=== PATIENT | female | born 1950 | race Caucasian/White ===

== ENCOUNTER 2024-01-23 06:07 | Day surgery (SDC) | payer MEDICARE, BC, SELFPAY ==
[2024-01-23] VITALS (20 sets, daily range): BP systolic 92–141; BP diastolic 44–96; PULSE 58–113; RESP 12–18; TEMP 35.9–36.9; O2SAT 93–100; BMI 34.4
[2024-01-23] MEDS: LACTATED RINGERS 1000 ML 1,000 ML 100 ML IV (06:51)
[2024-01-23] MEDS: SODIUM CHLORIDE 0.9 % (FLUSH) 10 ML SYRINGE IVF (06:51)
--- NOTE | 2024-01-23 07:08 | P.ORPRC_ITS ---
Procedure Note Date of procedure: 01/23/24 Procedure: PREOPERATIVE DIAGNOSIS: 1. Right knee osteoarthritis POSTOPERATIVE DIAGNOSES: 1. Right knee osteoarthritis PROCEDURE: 1. Right total knee arthroplasty SURGEON: Jeff Pierre MD DIRECTOR OF INDUSTRIAL RELATIONS: Tram Cueto P.A.-C.. An management assistant was critical for this case to aide in patient positioning, suture manipulation, arm positioning, instrument positioning, and closure. ANESTHESIA: Spinal IMPLANTS: DePuy Attune femoral posterior stabilized component size 5, DePuy Attune tibial base rotating platform size 5, DePuy Attune tibial insert rotating platform posterior stabilized polyethylene size 6 mm, and an Attune patella me dialized dome size 38 mm. EBL: 75 ml COMPLICATIONS: None evident INDICATIONS: Swathi is a 73-year-old female who has chronic knee pain secondary to osteoarthritis. Symptoms have worsened despite non operative treatment. Patient is now interested in proceeding with total knee arthroplasty for improved function, decreased pain and better quality of life. Prior to the procedure, risks and benefits of the operative and non operative treatment were discussed with the patient. After discussion of risks, benefits, and alternatives of surgery, informed consent was obtained and the operative site was marked. FINDINGS: Severe tricompartmental degenerative changes with eburnated bone in the medial compartment. PROCEDURE: Patient was seen preoperatively and operative site was marked. Ab ductor canal a genicular blocks were performed by anesthesia staff. Patient was then brought to the operating room, where spine anesthesia was administered by the anesthesia staff. Patient was then placed into the supine position on the OR table and all bony prominences were well padded. Preoperative prophylactic antibiotics were administered intravenously. A tourniquet was placed on the thigh of the operative leg. The right lower extremity was prepped and draped in usual sterile fashion. A surgical time-out was performed confirming patient identity, surgical procedure, and surgical site. Operative extremity was elevated and exsanguinated with an Esmarch and tourniquet was inflated to 250 mmHg. The tourniquet remained inflated for 6 minutes before it was deflated. An anterior longitudinal incision was made and carried down through the subcutaneous tissues. The quadriceps tendon, medial patellar retinaculum, and patellar tendon were visualized. A medial quadriceps splitting parapatellar arthrotomy was performed. The proximal medial tibia was subperiosteal exposed distal to the joint line. The retropatellar fat pad was excised. The knee was flexed and patella everted. A curved osteotome was used to enter the semimembranous bursa medially at the level of the joint line. Medial and lateral tibial plateau osteophytes were removed with a rongeur. The medial meniscus was excised at the meniscal synovial junction. The anterior cruciate ligament was excised. A Z-retractor was placed medially and a right angle Hohmann retractor was placed anterior lateral to the lateral meniscus. A partial lateral meniscectomy was performed. The intramedullary drill was utilized to open the intramedullary canal. ?Intramedullary alignment guide was inserted. The distal femoral cutting block, set at 5 degrees of valgus with a distal femoral resection of 10 mm, was secured with pins, and the distal femoral osteotomy was performed. ?Using the posterior condylar referencing guide, femur was sized to a size 5, and pins were drilled for 3 degrees of external rotation, which corresponded with Whitesides line and the epicondylar axis. ?A 4-in-1 cutting jig was inserted at 3 degrees of e xternal rotation. ?The anterior and posterior condylar cuts were performed followed by anterior and posterior chamfer cuts. The box cutting guide was then secured to the distal femur with pins and the box osteotomy was performed. ? ? We then turned our attention back to the tibia. ?Ranasall maneuver was performed and remainder of the lateral meniscus, medial meniscus, and PCL were excised. ?A retractor was placed along the posterior tibia. ?Extramedullary guide was secured around the ankle in line with the subcutaneous tibial crest. ?The tibial cutting block, set to remove 10 mm of bone from medial tibial plateau and 2 mm of bone from lateral tibial plateau, was secured proximally with pins. ?Tibial osteotomy was performed with care taken to protect the collateral ligaments. ?Spacer blocks were inserted, which confirmed symmetric flexion and extension gaps.?The tibia was then sized to a size 5, and tibial base plate was secured. Tibia was then prepped with the appropriate drill and punch. Trial femur and tibial components with a 5 mm tibial polyethylene component were inserted. The knee was then brought out to full extension. ?The patella was everted and osteochondral junction was exposed. ?The patella measured 23 mm in thickness. ?The patellar osteotomy was performed, leaving 14 mm of remnant patella. ?Three lug holes were drilled for the 38 mm patella button and the patella button was inserted. The knee was brought through a full range of motion. ?Soft tissue tension, collateral ligament stability, and patella tracking were confirmed to be satisfactory. ?Trial components were then removed. ??After removing the trial components, a bone plug was placed in the distal femur. The exposed bony surfaces of the tibia, femur, and patella were then thoroughly irrigated with pulse lavage and dried. ? Cement was mixed on the back table and was subsequently introduced onto the tibia and tibial base plate. ?Tibial base plate was then impacted into position, and extruded cement was removed. ?Cement was then applied to the distal femur and posterior condyles of the femoral prosthesis. ?The femoral prosthesis was impacted into position, extruded cement was removed, and a trial polyethylene was inserted. ?Knee was then brought out to full extension for remainder of drying. ?Cement was then applied to the patella and patellar button. The patella button was clamped into position, and extruded cement was removed. ?While the cement was drying, knee was soaked in a sterile iodine solution. ? After the cement had dried, the knee was flexed. ?The knee was trialed with a 5 mm and 6 mm tibial components and better stability was noted with the 6 mm trial component. Trial tibial component was removed. The tourniquet was then released. Total tourniquet time was 60 minutes. The soft tissues were irrigated with pulse lavage and hemostasis was achieved with electrocautery. A formal size 5, 6 mm rotating platform posterior stabilized polyethylene was then secured into position. ? The parapatellar arthrotomy was closed with #1 Vicryl [id number] interrupted sutures followed by running #1 Stratafix. Subcutaneous soft tissues were again irrigated with normal saline. ?Skin was closed with 2-0 Vicryl inverted, interrupted, subcutaneous stitches followed by running 2-0 Stratafix and 3-0 Monocryl subcuticular stitches. ?The incision was then sealed with Exo fin glue and sterile dressing was applied. ?The patient was then transferred to the recovery room in stable condition. POSTOPERATIVE PLAN: 1. Patient will be admitted to the hospital, where she will follow the postoperative total knee arthroplasty protocol. 2. Mobilize with physical therapy and occupational therapy. - Weight bear as tolerated right lower extremity. 3. Pain control: - Acetaminophen and Oxycodone for pain as needed. -IV pain medications for breakthrough pain -Ice for pain and swelling 4. Postoperative prophylactic antibiotics x2 doses 5. DVT prophylaxis: - aspirin 81 mg twice daily for 35 days - SCDs 6. Follow-up in Orthopedic Clinic in 1-2 weeks.
[2024-01-23] MEDS: ACETAMINOPHEN 500 MG TABLET 1000 MG PO ×3 (07:10→22:03)
[2024-01-23] MEDS: OXYCODONE (CR) 10 MG TAB.ER.12H PO (07:10)
--- NOTE | 2024-01-23 07:16 | W.PM.H&PU ---
History & Physical Update History & Physical Update H&P Reviewed and patient assessed: No changes noted
[2024-01-23] MEDS: fentaNYL 100 MCG/2 ML inj IVP (07:19)
[2024-01-23] MEDS: MIDAZOLAM HCL 1 MG/ML inj IVP (07:20)
--- NOTE | 2024-01-23 07:26 | SUR.PREOP ---
TIME?OUT:?0719 PT/RN/MDA?VERIFICATION?OF?SURGICAL?SITE,?PROCEDURE,?AND?CONSENT OBTAINED?PRIOR?TO?INVASIVE?PROCEDURE.
--- NOTE | 2024-01-23 07:30 | SUR.PREOP ---
R hearing aide removed and sent back to OR in chart.
[2024-01-23] MEDS: CEFAZOLIN 2 GM INJ IVP (07:35)
[2024-01-23] MEDS: TRANEXAMIC ACID 100 MG/ML INJ 1000 MG IV (07:40)
--- NOTE | 2024-01-23 09:29 | CRLHL7_ITS ---
For Patients: As a result of the Cures Act, medical imaging exams and procedure reports are released immediately into your electronic medical record. You may view this report before your referring provider. If you have questions, please contact your health care provider. INDICATION: Knee arthroplasty. FINDINGS: Two views of the right knee show right knee arthroplasty changes which appear intact. No evidence of acute fracture or dislocation. No other bony or soft tissue abnormalities identified. Dictated by Mina Butcher MD @ 01/24/2024 11:33:48 AM (Electronically Signed)
--- NOTE | 2024-01-23 09:31 | P.ANES_ITS ---
Anesthesia Charges Start Date/Time Anesthesia Start Date: 01/23/24 Anesthesia Start Time: 07:28 Stop Date/Time Anesthesia Stop Date: 01/23/24 Anesthesia Stop Time: 10:04 Summary Extremes of Age - Over 70 or under 1: [employer]
--- NOTE | 2024-01-23 10:53 | W.ANESCHARGE ---
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
--- NOTE | 2024-01-23 10:54 | W.PM.NB ---
Nerve Block Nerve Block Time Seen by Provider: 07:22 Date Seen: 01/23/24 Type of block requested by surgeon for post-operative analgesia: adductor canal Side: right Time out performed: Yes Verification of patient name: Yes Verification of date of : Yes Site marking: site marked Name of person performing procedure: Obed Continuous monitoring Was continuous monitoring of O2 sat, B/P, quality assurance monitor chassis, recorded every 15 minutes?: Yes Procedure Checklist: sterile prep, needles and gloves Ultrasound guided. Images saved: Yes Medications given in 5ml increments after negative aspiration: Ropivicaine %: 0.5 mL: 20 Needle gauge: 20 Decadron (mg): 10 Precedex (mcg): 25 Patient tolerated procedure well: Yes Additional comments: Needle noted adjacent to nerve Block Charges Block Charge (with Pro Fee): Femoral Nerve Use of Ultrasound Machine for Block: Yes- US Guidance/pain block
--- NOTE | 2024-01-23 10:55 | W.PM.NB ---
Nerve Block Nerve Block Time Seen by Provider: 08:22 Date Seen: 01/23/24 Type of block requested by surgeon for post-operative analgesia: geniculars Side: right Time out performed: Yes Verification of patient name: Yes Verification of date of : Yes Site marking: site marked Name of person performing procedure: Obed Continuous monitoring Was continuous monitoring of O2 sat, B/P, cardiac care unit nurse, recorded every 15 minutes?: Yes Procedure Checklist: sterile prep, needles and gloves Medications given in 5ml increments after negative aspiration: Ropivicaine %: 0.5 mL: 9 Needle gauge: 25 Patient tolerated procedure well: Yes Block Charges Block Charge (with Pro Fee): Genicular Nerve Block Use of Ultrasound Machine for Block: No
[2024-01-23] MEDS: HYDROmorphone 0.5 mg/0.5 ml inj IVP (12:23)
[2024-01-23] MEDS: CEFAZOLIN 2 GM in 0.9 % SODIUM CHLORIDE Mini-bag 100 ML IVPB ×2 (15:48→23:27)
--- NOTE | 2024-01-23 16:05 | CRLHL7_ITS ---
For Patients: As a result of the Century Cures Act, medical imaging exams and procedure reports are released immediately into your electronic medical record. You may view this report before your referring provider. If you have questions, please contact your health care provider. Indication: Aphasia postop confusion Technique: Volumetric multidetector CT images of the head were obtained without the administration of low osmolar intravenous contrast. Comparison: None available Findings: There is no intra-axial or extra-axial fluid collection. There is no mass effect or midline shift. There is age-related cortical atrophy with mild sulcal widening and ex vacuo dilatation of the lateral ventricles. There are chronic small vessel disease changes in the subcortical and periventricular white matter without lost villanueva-white differentiation. The orbits and their contents are grossly within normal limits. The bony calvarium is grossly intact. The paranasal sinuses are clear. The mastoid air cells are well aerated. Impression: 1. Age-related changes of the brain without acute intracranial abnormality. A negative head report was sent to Dr. Harrington at 4:52 p.m. January 23, 2024 Please note that all CT scans at this facility use dose modulation, iterative reconstruction, and/or weight-based dosing when appropriate to reduce radiation dose to as low as reasonably achievable. Dictated by Yeison Gutierrez MD @ 01/23/2024 4:53:47 PM (Electronically Signed)
--- NOTE | 2024-01-23 16:20 | CRLHL7_ITS ---
For Patients: As a result of the Century Cures Act, medical imaging exams and procedure reports are released immediately into your electronic medical record. You may view this report before your referring provider. If you have questions, please contact your health care provider. CLINICAL HISTORY: Postoperative confusion and aphasia. TECHNIQUE: Standard helical CT image acquisition through the head following the administration of intravenous contrast was performed. 3D and MIP reconstructions were performed at a separate workstation and permanently archived. COMPARISON: None available. FINDINGS: Scattered intracranial atherosclerotic disease without proximal large vessel occlusion or flow-limiting stenosis. There is a 3.5mm right PCOM aneurysm. No findings to suggest an arterial-venous shunting lesion. The major dural venous sinuses and deep venous system are patent. IMPRESSION: 1. Scattered intracranial atherosclerotic disease without proximal large vessel occlusion or flow-limiting stenosis. 2. Incidental 3.5mm right PCOM aneurysm. For consultation with our Neurointerventional service at [facility] regarding this patient`s cerebral aneurysm, please call [phone] to make arrangements with our coordinator.: For consultation with our Neurointerventional service at [facility] regarding this patient`s cerebral aneurysm, please call [phone] to make arrangements with our coordinator.: Please note that all CT scans at this facility use dose modulation, iterative reconstruction, and/or weight-based dosing when appropriate to reduce radiation dose to as low as reasonably achievable. Dictated by Nico Justice MD @ 01/24/2024 11:13:21 AM (Electronically Signed)
--- NOTE | 2024-01-23 16:24 | CRLHL7_ITS ---
For Patients: As a result of the Century Cures Act, medical imaging exams and procedure reports are released immediately into your electronic medical record. You may view this report before your referring provider. If you have questions, please contact your health care provider. CLINICAL HISTORY: Postoperative confusion and aphasia. TECHNIQUE: Standard helical CT image acquisition through the neck was performed after intravenous contrast bolus enhancement. 3D and MIP reconstructions were performed at a separate workstation and permanently archived. COMPARISON: None available. FINDINGS: The origins of the great vessels from the aortic arch are patent. The common carotid arteries are patent. No significant luminal stenoses of the proximal ICAs by NASCET criteria. The more distal cervical segments of the ICAs are patent. The origins and cervical segments of the vertebral arteries are patent. IMPRESSION: Patent cervical arterial vasculature without hemodynamically significant luminal stenosis. Please note that all CT scans at this facility use dose modulation, iterative reconstruction, and/or weight-based dosing when appropriate to reduce radiation dose to as low as reasonably achievable. Dictated by Nico Justice MD @ 01/24/2024 11:07:00 AM (Electronically Signed)
--- NOTE | 2024-01-23 16:32 | PM.IMCN1 ---
Date of Consult Patient: [facility] Patient Consult date: 01/23/24 Requesting Physician: Orthopedics Primary Care Provider: Not a Local Provider Consult Narrative Narrative: Swathi Garza is a 73 year old female admitted to the hospital for right total knee arthroplasty. Procedure performed by Dr. Alfred Pierre. There were no apparent operative complications. She was brought to the medical-surgical floor postoperatively around 11:00 a.m.. At that time she was speaking normally but seemed a little bit sedated. She received hydromorphone 0.5 mg IV at 12:23 p.m. today. that was the last time she was seen to be normal. She then fell asleep. Around 3:30 P.m. she awoke and seemed more confused and was having trouble speaking. I was called to see her. When I got in to see her she was unable to speak at all. She could not give me her name or name her . She also could not follow simple instructions to squeeze fingers or wiggle her toes. Stroke code was called and she was taken to CT scanner. Preoperatively between 7:10 and 7:20 a.m. she received oxycodone 10 mg P.o., fentanyl 50 mcg IV, midazolam 2 mg IV. Spinal anesthesia administered for this surgery. Her vital signs today have been relatively unremarkable except that she had relative low blood pressure between 10:00 a.m. and 11:00 a.m. today. (90s/50s) The patient has recently moved to [place] from [place]. Detailed past medical records are not available. She had a preop physical indicating osteoarthritis and anxiety as medical problems hysterectomy and cholecystectomy for surgeries and metoprolol succinate 25 mg b.i.d. for chronic tachycardia. This was prescribed by her clerk secretary in [place]. No other known heart disease. Apparently no other medications. No drug allergies. She does not smoke. She drinks alcohol about once a year. After her cholecystectomy in August 2023 she apparently had a similar event where she was very confused and agitated. Her reports that it was similar to what she is exhibiting now. He also notes that she has been more forgetful and more emotional over the last couple years. She was previously taking buspirone p.r.n. for anxiety. Her reports that he has taken over the management of household finances and many other tasks because she no longer seems able to manage these things. 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 Review of Systems Narrative: Review of systems is negative except as noted above . indicates both knees need to be replaced. PFSH PFS Medical History (Updated 01/23/24 @ 17:47 by Edmundo Harrington MD) Cognitive impairment ?R41.89 - Other symptoms and signs involving cognitive functions and awareness (ICD-10) Tachycardia ?R00.0 - Tachycardia, unspecified (ICD-10) History of postoperative delirium ?Z86.59 - Personal history of other mental and behavioral disorders (ICD-10) Anxiety ?F41.9 - Anxiety disorder, unspecified (ICD-10) Arthritis ?M19.90 - Unspecified osteoarthritis, unspecified site (ICD-10) Surgical History (Updated 01/23/24 @ 17:39 by Edmundo Harrington MD) History of arthroplasty of right knee ?Z96.651 - Presence of right artificial knee joint (ICD-10) H/O: hysterectomy ?Z90.710 - Acquired absence of both cervix and uterus (ICD-10) FH: cholecystectomy ?Z83.79 - Family history of other diseases of the digestive system (ICD-10) Family History Father Leukemia Social History (Updated 01/23/24 @ 17:31 by Edmundo Harrington MD) Narrative: Recently moved from [facility]. She is here with her . She does not smoke. 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 she drinks alcohol about once a year. 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 Code status is full. What is your current living situation?: I presently have a place to live Problems where you live: no known problems Problems where you live details: n/a In the past 12 months, utilities in danger of being shut off: no In past 12 months, lack of transportation kept you from medical appts, meetings, work, or getting things needed for daily living: no In the past 12 mos, have been you worried that your food would run out before you had money to buy more?: never true In the past 12 mos, the food you bought just didn't last and you didn't have money to buy more?: never true Smoking Status: Never smoker How often do you have a drink containing alcohol: monthly or less How many standard drinks containing alcohol do you have on a typical day: 1 or 2 How often do you have six or more drinks on one occasion: Never AUDIT-C Alcohol total score: 1 Non-prescribed substance use: denies use Caffeine: No (decaf) How often does anyone, including family, friends and others, physically hurt you: never How often does anyone, including family, friends and others, insult or talk down to you: never How often does anyone, including family, friends and others, threaten you with harm: never How often does anyone, including family, friends and others, scream or curse at you: never Little interest or pleasure in doing things: not at all Feeling down, depressed, or hopeless: not at all service: No Meds Home Medications and Allergies Home Medications ?Medication ?Instructions ?Recorded ?Confirmed ?Type metoprolol succinate 25 mg 25 mg PO BID 12/25/23 01/23/24 History tablet,extended release 24 hr Allergies Allergy/AdvReac Type Severity Reaction Status Date / Time No Known Drug Allergies Allergy Verified 01/23/24 16:32 Exam Narrative: Exam Narrative: At 4:10 p.m. examination shows no obvious facial asymmetry. Pupils are equal. She moves all 4 extremities but not on command. There is no obvious focal weakness. She is unable to make words and does not respond to questions or follow any commands. She appears mildly agitated. At 5:00 p.m. repeat examination shows no facial asymmetry. She does not cooperate with eye exam but her pupils remain equal. She will not do extraocular movements or visual jones. She is tearful and remains agitated. she verbalizes minimally. She does not answer simple questions or follow simple commands. She actively resists attempts at physical examination. She is observed to stand and transfer from bed to commode with the nurses. Observing this she has no obvious focal weakness in upper or lower extremities. She moves very slowly with a lot of encouragement from the nurses and is still unsuccessful at getting to the commode. Respirations are clear to auscultation. Cardiovascular: S1, S2, regular tachycardia. Abdomen: Bowel sounds active. Abdomen is soft without tenderness or mass. No significant edema. Const: Vital Signs, click to edit/add: Vital Signs - 24 hr 01/23/24 06:50 06/12/24 07:20 01/23/24 10:01 Temperature 97.6 F 96.7 F L Pulse Rate 87 79 65 Respiratory Rate 16 16 16 Blood Pressure 141/60 H 117/44 L 97/49 L Pulse Oximetry 97 97 93 Oxygen Delivery Me thod Room Air Room Air Room Air 01/23/24 10:05 01/23/24 10:10 01/23/24 10:15 Temperature Pulse Rate 62 60 62 Respiratory Rate 12 12 12 Blood Pressure 106/44 L 96/47 L 92/53 L Pulse Oximetry 94 96 95 Oxygen Delivery Me thod Room Air Room Air Room Air 01/23/24 10:20 01/23/24 10:25 01/23/24 10:30 Temperature 97.0 F L Pulse Rate 59 L 70 72 Respiratory Rate 12 12 14 Blood Pressure 115/53 L 118/47 L 114/55 L Pulse Oximetry 97 97 99 Oxygen Delivery Me thod Room Air Room Air Room Air 01/23/24 11:00 01/23/24 11:30 01/23/24 12:00 Temperature 98.0 F 98.5 F 98.5 F Pulse Rate 60 63 67 Respiratory Rate 14 14 16 Blood Pressure 108/49 L 126/55 L 133/79 Pulse Oximetry 100 100 98 Oxygen Delivery Me thod 01/23/24 12:30 01/23/24 13:00 01/23/24 14:00 Temperature 98.5 F 97.5 F L 98.0 F Pulse Rate 74 58 L 67 Respiratory Rate 16 14 16 Blood Pressure 126/51 L 111/46 L 110/44 L Pulse Oximetry 96 97 98 Oxygen Delivery Me thod 01/23/24 15:32 01/23/24 15:33 Temperature Pulse Rate 92 95 Respiratory Rate Blood Pressure 113/96 H Pulse Oximetry 98 99 Oxygen Delivery Me thod Documenting provider has reviewed patient's vital signs: yes Assessment and Plan Assessment and plan (1) Acute focal neurological deficit: Problem comment: Postoperatively patient had developed acute aphasia with concern for stroke. Stroke code was called. Evaluation then suggested this was postoperative delirium more likely than stroke. Dr. Sanjuana Streeter, neurologist consulted by phone. CT head showed chronic changes. CTA of the neck showed mild atherosclerotic disease without occlusion. CTA of the head showed no high-grade stenosis or occlusion. Status: Acute (2) Postoperative delirium: Problem comment: Previous episode similar to this after cholecystectomy in [place] August 2023 per her 's report. Status: Acute (3) Cognitive impairment: Problem comment: Appears to have cognitive impairment developing over the last several months to years. Status: Acute (4) History of arthroplasty of right knee: Problem comment: Dr. Pierre, 01/23/2020 for, no operative complications. Postoperative delirium. Status: Acute Plan Patient is admitted to the hospital for right total knee arthroplasty. She is now developed acute postoperative delirium as the most likely explanation for her altered mental status, confusion, aphasia, agitation. Supportive cares. Routine therapy and pain management. Total Time Spent Total Time Spent: Total time spent today is 90 minutes in critical evaluation and treatment including stroke code neurologic assessment, discussion with and reviewing test results
[2024-01-23 17:02] LABS: HCO3 VBG 24 mmol/L (21-28); PCO2 VBG 37 mmHG (40-50); PO2 VBG 48.7 mmHG (25-47); pH VBG 7.425 (7.32-7.43)
[2024-01-23 17:05] LABS: Hematocrit 42.3 % (33.0-51.0); Hemoglobin* 13.9 gm/dL (12.0-16.0); Immature Granulocytes Pct Auto 0.2 %; Lymphocytes Percent Auto 7.1 % (20-44); Mean Corpuscular HGB Conc 33 gm/dL (32-36); Mean Corpuscular Hemoglobin 30 pg (26-34); Mean Corpuscular Volume 91 fL (80-100); Monocytes Percent Auto 3.6 % (0.0-11.0); Neutrophils Percent Auto 89.1 % (42.0-72.0); Platelet Count* 224 K/uL (140-440); RDW Coefficient of Variation % 13.3 % (11.5-15.5); Red Blood Count 4.64 m/uL (4.00-5.20); White Blood Count* 11.29 K/uL (4.50-11.00)
[2024-01-23 17:13] LABS: Slide Review Reflex No
[2024-01-23 17:21] LABS: Albumin* 4.3 g/dL (3.3-5.0); Chloride* 102 mmol/L (96-114); Sodium* 136 mmol/L (135-149)
[2024-01-23 17:22] LABS: Potassium* 4.4 mmol/L (3.6-5.1)
[2024-01-23 17:23] LABS: INR 0.91 (0.91-1.10); Prothrombin Time 12.8 Seconds
[2024-01-23 17:24] LABS: Creatinine* 0.4 mg/dL (0.5-1.5); Est. Creatinine Clearance* 41.45; Estimated Glomerular Filt Rate 104 ml/min
[2024-01-23 17:25] LABS: Alanine Aminotransferase* 22 U/L (4-35); Alkaline Phosphatase* 102 U/L (40-150); Anion Gap 11 mEq/L (7-15); Aspartate Amino Transferase* 25 U/L (12-35); Bilirubin Direct* 0.4 mg/dL (0.0-0.5); Bilirubin Total* 0.6 mg/dL (0.1-1.5); Blood Urea Nitrogen* 16 mg/dL (7-30); Calcium* 8.7 mg/dL (8.4-10.6); Carbon Dioxide* 23 mmol/L (20-32); Glucose* 144 mg/dL (60-115); Total Protein* 7.2 g/dL (6.0-8.3)
[2024-01-23 17:27] LABS: C Reactive Protein* 1.2 mg/dL (0.5-1.0)
[2024-01-23 17:33] LABS: Chloride* 103 mmol/L (96-114)
[2024-01-23 17:34] LABS: Potassium* 4.5 mmol/L (3.6-5.1); Sodium* 135 mmol/L (135-149)
[2024-01-23 17:36] LABS: Creatinine* 0.4 mg/dL (0.5-1.5); Est. Creatinine Clearance* 41.45; Estimated Glomerular Filt Rate 104 ml/min
[2024-01-23 17:37] LABS: Anion Gap 10 mEq/L (7-15); Blood Urea Nitrogen* 16 mg/dL (7-30); Carbon Dioxide* 22 mmol/L (20-32); Glucose* 143 mg/dL (60-115)
[2024-01-23 17:47] LABS: Troponin I* < 0.01 ng/mL (0.01-0.04)
[2024-01-23 18:10] LABS: Partial Thromboplastin Time* 27 Seconds (23-33)
[2024-01-23 18:22] LABS: Thyroid Stimulating Hormone* 0.555 uIU/mL (0.270-4.20)
--- NOTE | 2024-01-23 19:35 | PC.NURSE ---
End of Shift: The patient arrived to the floor @ 1100. Alert and orientated at that time, with periods of confusion were noted... although the patient had just received a couple pain medications in PACU. When I returned @ 1200 the patient was noted to have an increaase in pain... .5 of diluadid was given. After administration the patient slept for a couple hours... VS remained stable on RA. At my 1500 assessment the patient could not respond to questions and seemed to have difficulty finding words and was noted to be quite emotional. The patients noted this is abnormal for her. Dr Harrington was notified and assessed... order For Head/neck CT was obtained and completed... no identifiers of a stroke noted. Neuro was contacted and protocol was followed. The patient was more agitated and tearful at this time. After many interactions the patient calmed down and now is responding to questions with one word responses. Moving well with Ax1 w/ GB and walker to BR... has voided 2x. R knee dressing is CDI and VIKASH wrap is in place. Tylenol for pain to reduce the delirium associated with narcotics. Alarms in place and call light within reach. Tele is on and noted to be tachycardic at the end of the shift... Dr Harrington was notified.. although the patient was ambulating at this time from the bathroom. Now at rest 100BPM. No nausea.. tolerated a normal diet for dinner. BRIGITTE VALADEZ BSN
[2024-01-23] MEDS: METOPROLOL SUCCINATE (XL) 25 MG TAB PO (20:44)
[2024-01-23] MEDS: ASPIRIN 81 MG TABLET EC PO (20:44)
[2024-01-23] MEDS: SENNOSIDES 1 TAB TABLET 2 TAB PO (20:44)
[2024-01-23] MEDS: LACTATED RINGERS 1000 ML 1,000 ML 75 ML IV (22:08)
[2024-01-24] MEDS: OXYCODONE 5 MG TABLET PO ×3 (00:03→05:19)
[2024-01-24 03:00] VITALS: BP 159/109; PULSE 111; RESP 20; TEMP 36.2; O2SAT 100
[2024-01-24] MEDS: ACETAMINOPHEN 500 MG TABLET 1000 MG PO ×2 (05:18→10:07)
[2024-01-24 07:00] VITALS: PULSE 100
--- NOTE | 2024-01-24 07:03 | PC.NURSE ---
End of shift [id number]: Patient alert and oriented to name and birthdate.? Intermittent confusion, easily redirectable.? Dressing to right knee clean, dry and intact.? Right knee edematous, encouraged use of ice pack throughout the shift.? Patient not call light appropriate, impulsive and becomes upset with bed alarm.? At 0230 bed alarm sounding and assisted patient to bathroom, Swathi was crying and reporting pain in knee that goes down into her latif, discussed pain medication options and patient requested stronger pain medication as dose at 0000 was not effective for pain. States ?I?m worse now than when I got here?, copy writer had to reorient patient to surgical procedure that was completed earlier today.? SBA-min A x 1 for transfers and ambulation, utilizes walker and gait belt.??
[2024-01-24 07:57] VITALS: BP 151/66; PULSE 103; RESP 18; TEMP 36.4; O2SAT 98
[2024-01-24 08:00] VITALS: RESP 18; O2SAT 97
--- NOTE | 2024-01-24 08:34 | P.ORPN_ITS ---
Subjective Subjective Time Seen by Provider: 08:10 Date Seen: 01/24/24 Principal diagnosis: Day 1 s/p right total knee arthroplasty Interval history: Swathi is doing okay and is resting in her recliner, although she appears uncomfortable and is frequently readjusting. , Carl, is present during our visit. Patient is quite [id number]. Swathi c/o significant right knee pain, worse with movement. Patient would like to rely more on Tylenol and ice for pain management. She reports she has a cryocuff waiting for her at home. reports Swathi has confusion with oxycodone and they would like to minimize use of this medication. Patient denies: chest pain, SOB, fever, chills, nausea, vomiting, numbness/tingling distally. Ortho Exam Narrative Exam Narrative: Incision/Dressing: Dressing appears clean and dry. No drainage present. Mepilex intact. Right knee appears moderately swollen but supple with no obvious erythema, fluctuance or excessive warmth. No ecchymosis or erythematous streaking. Warmth around the wound is appropriate. Ice is being utilized as needed. CMS: Intact distally with 2+ Dorsalis pedis and Posterior Tibial pulses. Confirmed sensation distally. Intact straight leg raise. Calf: Bilateral calves are supple, with no swelling, pain, tenderness, erythema, discoloration or coolness to the touch. Constitutional: Patient is alert and oriented x3. Patient is in no acute distress and converses without labored breathing. Patient is able to make decisions and demonstrates good insight. Patient is pleasant and cooperative. Affect is full range and appropriate for the circumstances. Patient is very [id number]. Const Vital Signs, click to edit/add: Vital Signs - 24 hr 01/23/24 10:01 01/23/24 10:05 01/23/24 10:10 Temperature 96.7 F L Pulse Rate 65 62 60 Pulse Rate [Right Pulse Oximeter] Respiratory Rate 16 12 12 Blood Pressure 97/49 L 106/44 L 96/47 L Blood Pressure [Left Arm] Pulse Oximetry 93 94 96 Oxygen Delivery Method Room Air Room Air Room Air 01/23/24 10:15 01/23/24 10:20 01/23/24 10:25 Temperature 97.0 F L Pulse Rate 62 59 L 70 Pulse Rate [Right Pulse Oximeter] Respiratory Rate 12 12 12 Blood Pressure 92/53 L 115/53 L 118/47 L Blood Pressure [Left Arm] Pulse Oximetry 95 97 97 Oxygen Delivery Method Room Air Room Air Room Air 01/23/24 10:30 01/23/24 11:00 01/23/24 11:30 Temperature 98.0 F 98.5 F Pulse Rate 72 60 63 Pulse Rate [Right Pulse Oximeter] Respiratory Rate 14 14 14 Blood Pressure 114/55 L 108/49 L 126/55 L Blood Pressure [Left Arm] Pulse Oximetry 99 100 100 Oxygen Delivery Method Room Air 01/23/24 12:00 01/23/24 12:30 01/23/24 13:00 Temperature 98.5 F 98.5 F 97.5 F L Pulse Rate 67 74 58 L Pulse Rate [Right Pulse Oximeter] Respiratory Rate 16 16 14 Blood Pressure 133/79 126/51 L 111/46 L Blood Pressure [Left Arm] Pulse Oximetry 98 96 97 Oxygen Delivery Method 01/23/24 14:00 01/23/24 15:32 01/23/24 15:33 Temperature 98.0 F Pulse Rate 67 92 95 Pulse Rate [Right Pulse Oximeter] Respiratory Rate 16 Blood Pressure 110/44 L 113/96 H Blood Pressure [Left Arm] Pulse Oximetry 98 98 99 Oxygen Delivery Method 01/23/24 15:40 01/23/24 19:00 01/23/24 23:00 Temperature 97.4 F L Pulse Rate 97 Pulse Rate [Right Pulse Oximeter] 113 H Respiratory Rate 16 Blood Pressure Blood Pressure [Left Arm] 123/89 Pulse Oximetry 97 97 Oxygen Delivery Method Room Air Room Air 01/23/24 23:00 01/23/24 23:00 01/23/24 23:00 Temperature 97.3 F L Pulse Rate Pulse Rate [Right Pulse Oximeter] 97 97 Respiratory Rate 18 18 18 Blood Pressure Blood Pressure [Left Arm] 128/80 Pulse Oximetry 97 97 Oxygen Delivery Method Room Air Room Air 01/24/24 03:00 01/24/24 07:57 Temperature 97.2 F L 97.6 F Pulse Rate Pulse Rate [Right Pulse Oximeter] 111 H 103 H Respiratory Rate 20 18 Blood Pressure Blood Pressure [Left Arm] 159/109 H 151/66 H Pulse Oximetry 100 98 Oxygen Delivery Method Room Air Room Air Assessment and Plan Assessment and plan (1) History of arthroplasty of right knee: Problem details: Dr. Pierre, 01/23/2024 Status: Acute Assessment and Plan: - Complete 23 hour perioperative antibiotics. - PT/OT consults for education and assistance. - Weight bear as tolerated with a walker for assistance. - Pain management: discontinue oxycodone due to adverse side effects of confusion. In place, I recommend [place] 5/325 PRN. Swathi and her would like to manage her pain with Tylenol and icing, however Swathi is quite uncomfortable and did not sleep well last night. They are open to trying [place] prior to discharge. I will wait on sending her discharge narcotic medication. - DVT prophylaxis: aspirin 81 mg BID x 35 days. Also, frequent ambulation and ankle pumps when sedentary. - Social consult for discharge planning. - Discharge date/time unclear at this time, dependent upon pain management and how Swathi does with OT and PT later this morning. - Return to clinic in 1 week for a wound check with myself. Mepilex dressing will be removed at this appointment. Remove sooner if dressing becomes saturated. - Return to clinic in [address] Pierre. - Phone Orthopedics with any questions or concerns. [phone]
[2024-01-24] MEDS: SENNOSIDES 1 TAB TABLET 2 TAB PO (10:08)
[2024-01-24] MEDS: METOPROLOL SUCCINATE (XL) 25 MG TAB PO (10:08)
[2024-01-24] MEDS: CEFAZOLIN 2 GM in 0.9 % SODIUM CHLORIDE Mini-bag 100 ML IVPB (10:10)
[2024-01-24] MEDS: ASPIRIN 81 MG TABLET EC PO (10:10)
--- NOTE | 2024-01-24 11:20 | PC.SOCIAL ---
Discharge planning- Met with patient and patient's to discuss discharge plans. Per therapy, patient will return home with outpatient therapy services. Patient's will assist patient in the home during recovery. Patient has children and grandchildren that can also provide assistance. There are no identified social work needs. Informed patient if there are any other questions they may reach out to social work as needed.
[2024-01-24] MEDS: HYDROCODONE-ACETAMIN 5-325 MG 1 TAB PO (15:50)
--- NOTE | 2024-01-24 17:49 | PC.NURSE ---
Discharge Note: The patient discharged home with her in adequate condition. Some confusion still.. R knee dressing is CDI. Reports moderate pain, but states that she is tolerating the pain at this time. Rehab outpatient and all follow ups were scheduled. Tolerating a regular diet. Discharge info about signs of infection were discussed and what number to call. Aurea VALADEZ BSN
== END 2024-01-24 16:47 | disposition home or self-care (01) ==
LOC: OR 06:09 → MEDSURG 06:12
PROVIDERS: Family Medicine; Visit Provider Orthopaedic Surgery
PROC: (CPT 27447; principal; 2024-01-23 07:15)
DX: M17.11 Unilateral primary osteoarthritis, right knee (principal); G89.18 Other acute postprocedural pain; F05 Delirium due to known physiological condition; R47.01 Aphasia; G31.84 Mild cognitive impairment of uncertain or unknown etiology; F41.9 Anxiety disorder, unspecified
CPT/HCPCS: 27447; 01402; 36415; 64447; 64454; 70450; 70496; 70498; 73560; 76942; 80048; 80076; 82803; 82962; 84443; 84484; 85025; 85610; 85730; 86140; 93005; 97110; 97116; 97161; 97166; 97530; 97535; 99100; A9270; C1776; J0690; J1170; J2250; J2405; J2704; J3010; J7120; Q9967

== ENCOUNTER 2024-03-05 10:19 | Outpatient (CLI) | payer MEDICARE, BC, SELFPAY | END 2024-03-05 10:20 | disposition home or self-care (01) | PROVIDERS: PCP Internal Medicine; Visit Provider Internal Medicine | DX: I10 Essential (primary) hypertension (principal); R41.89 Other symptoms and signs involving cognitive functions and awareness | CPT/HCPCS: 80053; 84443 ==

== ENCOUNTER 2024-03-06 11:00 | Outpatient (RCR) | payer MEDICARE, BC, SELFPAY | END 2024-04-11 08:20 | disposition home or self-care (01) | PROVIDERS: Visit Provider Orthopaedic Surgery | DX: M17.11 Unilateral primary osteoarthritis, right knee (principal); Z51.89 Encounter for other specified aftercare | CPT/HCPCS: 87086; 97110; 97116; 97140; 97161; 97164 ==

== ENCOUNTER 2024-03-14 07:28 | Outpatient (CLI) | payer MEDICARE, BC, SELFPAY ==
--- NOTE | 2024-03-14 07:45 | CRLHL7_ITS ---
For Patients: As a result of the Century Cures Act, medical imaging exams and procedure reports are released immediately into your electronic medical record. You may view this report before your referring provider. If you have questions, please contact your health care provider. BILATERAL DIGITAL SCREENING MAMMOGRAM WITH COMPUTER-AIDED DETECTION AND TOMOSYNTHESIS CLINICAL HISTORY: Routine screening exam. COMPARISON: None. TECHNIQUE: Digital mammogram in CC and MLO projections including computer-aided detection (CAD). Tomosynthesis was used in this interpretation. BREAST COMPOSITION: There are scattered areas of fibroglandular density. FINDINGS: RIGHT Breast: No suspicious findings. LEFT Breast: Focal asymmetric density lateral breast 7 cm from the nipple. IMPRESSION: LEFT breast asymmetry/mass. RECOMMENDATIONS: Additional mammographic views of the LEFT breast including 3D spot compression CC/MLO. LEFT breast ultrasound may also be required. The [facility] will contact the patient for follow-up. BI-RADS Category 0: Incomplete: Need Additional Imaging Evaluation and/or Prior Mammograms for Comparison. A lay language report of this examination will be provided to the patient. Dictated by Steven Small MD @ 03/27/2024 12:44:36 PM /sp/sushil SP/Dictated by: Steven Small MD @ 03/27/2024 12:44:00 PM (Electronically Signed)
== END 2024-03-14 07:29 | disposition home or self-care (01) ==
LOC: MAMMO 07:30
PROVIDERS: PCP Internal Medicine; Visit Provider Internal Medicine
DX: Z12.31 Encounter for screening mammogram for malignant neoplasm of breast (principal); N63.20 Unspecified lump in the left breast, unspecified quadrant
CPT/HCPCS: 77063; 77067

== ENCOUNTER 2024-04-02 09:13 | Outpatient (CLI) | payer MEDICARE, BC, SELFPAY ==
--- NOTE | 2024-04-02 09:45 | CRLHL7_ITS ---
For Patients: As a result of the Cures Act, medical imaging exams and procedure reports are released immediately into your electronic medical record. You may view this report before your referring provider. If you have questions, please contact your health care provider. LEFT DIAGNOSTIC MAMMOGRAM WITH COMPUTER-AIDED DETECTION AND TOMOSYNTHESIS LEFT BREAST ULTRASOUND CLINICAL HISTORY: LEFT breast mass/asymmetry. COMPARISON: 03/14/2024. TECHNIQUE: Digital LEFT mammogram in two projections. Computer-aided detection and tomosynthesis were used in this interpretation. Real-time ultrasound imaging of LEFT breast with imaging documentation. BREAST COMPOSITION: There are scattered areas of fibroglandular density. FINDINGS: 3D spot compression CC/MLO LEFT breast mammogram images submitted. Persistent nodular density. No architectural distortion. No suspicious calcifications. Targeted LEFT breast ultrasound performed 3 o`clock 5 cm from the nipple. This measures 7 x 3 x 4 mm. No abnormal vascularity. Normal central fatty hilum. IMPRESSION: Benign intramammary lymph node LEFT breast 3 o`clock 5 cm from the nipple measuring 7 x 3 x 4 mm. No suspicious findings. RECOMMENDATIONS: Annual BILATERAL screening mammography. Results and recommendations discussed with the patient. BI-RADS Category 2: Benign A lay language report of this examination will be provided to the patient. Dictated by Steven Small MD @ 04/02/2024 10:43:37 AM /sp/sushil SP/Dictated by: Steven Small MD @ 04/02/2024 10:43:00 AM (Electronically Signed)
--- NOTE | 2024-04-02 10:15 | CRLHL7_ITS ---
For Patients: As a result of the Century Cures Act, medical imaging exams and procedure reports are released immediately into your electronic medical record. You may view this report before your referring provider. If you have questions, please contact your health care provider. PLEASE SEE LEFT BREAST DIAGNOSTIC MAMMOGRAM PERFORMED THE SAME DAY. CRL:sp 04/02/2024 SP/Dictated by: Steven Small MD @ 04/02/2024 10:43:00 AM (Electronically Signed)
== END 2024-04-02 09:14 | disposition home or self-care (01) ==
PROVIDERS: PCP Internal Medicine; Visit Provider Internal Medicine
DX: N63.20 Unspecified lump in the left breast, unspecified quadrant (principal); R92.8 Other abnormal and inconclusive findings on diagnostic imaging of breast
CPT/HCPCS: 76642; 77065; G0279

== ENCOUNTER 2024-07-20 14:59 | Emergency (ER) | payer MEDICARE, BC, SELFPAY ==
[2024-07-20 15:13] VITALS: BP 134/79; PULSE 105; RESP 18; TEMP 35.9; O2SAT 98; BMI 35.0
[2024-07-20] MEDS: SIMETHICONE/SOD BICARB/CIT AC 1 EACH GRAN.EF.PK PO (15:30)
--- OUTSIDE RECORDS SUMMARY | 2024-07-20 15:33 | XMS_ITS | Clinical Summary ---
Author Organization [facility] Address [place], [place] [address] Care Team Providers Care Passenger Car Upholsterer Apprentice Name Role Phone Aiden Morton MD Primary Care Provider Medications clopidogreL (PLAVIX) 75 mg tabletIndicatio ns:Brain aneurysm Take 1 Tablet (75 mg) by mouth once daily. 30 Tablet 07/10/2024 Active famotidine (PEPCID) 10 mg tabletIndicatio ns:Brain aneurysm Take 1 Tablet (10 mg) by mouth 2 times daily if needed for GI Upset (GI upset while on Plavix). 30 Tablet 06/19/2024 Active ticagrelor (Brilinta) 90 mg tabletIndicatio ns:Brain aneurysm Take Brilinta 90 mg (1 tablet) as soon as possible, then take Brilinta 90 mg (1 tablet) this evening and continue every 12 hours (including the morning of the procedure) 7 Tablet 07/18/2024 Active Encounters Date Type Department Care Team Description 07/18/2024 8:56 AM ACCOUNT REVIEW SPECIALIST - 07/18/2024 11:59 PM ACCOUNT REVIEW SPECIALIST Hospital Encounter [facility] [address] [place] [address] Lesli Boone NP Brain aneurysm 07/18/[address] [facility] [address] [place] [address] Lesli Boone NP 06/19/[address] [facility] [address] [place] [address] Lesli Boone NP <No scans attached> 06/13/2024 1:00 PM CDT Office Visit [facility] [address] [place] [address] Deandre Christianson MD 06/13/2024 Travel from Last 3 Months Social History Tobacco Use Types Packs/Day Years Used Date Smoking Tobacco: Never Assessed Comments Unknown Sex and Gender Information Value Date Recorded Sex Assigned at Not on file Legal Sex Female 4:49 PM CDT Gender Identity Not on file Sexual Orientation Not on file Plan of Treatment Upcoming Encounters Date Type Department Care Team (Late st Contact Info) Description 07/21/2024 10:00 AM ACCOUNT REVIEW SPECIALIST Hospital Encounter [facility] [address] [place] [address] Deandre Christianson MD [address] [facility] [address] [place] [address] 01/09/2025 10:[address] [facility] [address] [place] [address] Health Maintenance Due Date Last Done Comments Tdap 1961 Depression screening for age 12+ 1962 BMI (ht and wt on same day) for age 18+ 1968 Hepatitis C screening for age 18-79 1968 Tetanus booster 1970 Colonoscopy through age 75 1995 Lipids for age 45-75 1995 Mammogram for age 45-75 1995 Zoster (shingles) series for age 50+ (1 of 2) 06/03/20 00 DEXA/DXA scan for age 65+ 2015 Medicare Wellness for age 65+ 2015 Pneumococcal series for age 65+ (1 of 1 - PCV) 015 Influenza for age 65+ 04/13/2024 COVID-19 vaccine series Completed 05/22/2024 Procedures Procedure Name Priority Date/Time Associated Diagnosis Comments ASPIRIN THERAPY EFFECT HCT/PLT Timed 07/18/2024 9:06 AM ACCOUNT REVIEW SPECIALIST Brain aneurysm ASPIRIN THERAPY EFFECT TEST Timed 07/18/2024 9:06 AM ACCOUNT REVIEW SPECIALIST Brain aneurysm P2Y12 INHIBITION Today 07/18/2024 9:06 AM ACCOUNT REVIEW SPECIALIST Brain aneurysm ASPIRIN THERAPY EFFECT Today 07/18/2024 9:06 AM ACCOUNT REVIEW SPECIALIST Brain aneurysm from Last 3 Months Results * ASPIRIN THERAPY EFFECT HCT/PLT (07/18/2024 9:06 AM ACCOUNT REVIEW SPECIALIST) PLATELET COUNT 276 140 - 440 thou/cu mm 07/18/2024 9:54 AM ACCOUNT REVIEW SPECIALIST [facility] Blood BLOOD SPECIMEN / Unknown Venipuncture / Unknown 07/18/2024 9:06 AM ACCOUNT REVIEW SPECIALIST 07/18/2024 9:21 AM ACCOUNT REVIEW SPECIALIST Lesli Boone NP HEMATOLOGY Final Result Performing Organization Address [facility] de Phone Number [facility] [address] [place] [address], [place] * ASPIRIN THERAPY EFFECT TEST (07/18/2024 9:06 AM ACCOUNT REVIEW SPECIALIST) ASPIRIN 402 <550 ARU (Aspirin Reaction Units) 07/18/2024 9:54 AM ACCOUNT REVIEW SPECIALIST [facility] [employer] [facility] Comment:Platelet dysfunction consistent with aspirin has been detected. PLATELET COUNT 276 140 - 440 thou/cu mm 07/18/2024 9:54 AM ACCOUNT REVIEW SPECIALIST [facility] Blood BLOOD SPECIMEN / Unknown Venipuncture / Unknown 07/18/2024 9:06 AM ACCOUNT REVIEW SPECIALIST 07/18/2024 9:21 AM ACCOUNT REVIEW SPECIALIST Narrative [facility] - 07/18/2024 9:54 AM ACCOUNT REVIEW SPECIALIST Platelet aggregation studies are useful as a screening test only. Platelet aggregation results must be interpreted within the context of the patients clinical and pharmacological history. Lesli Boone NP HEMATOLOGY Final Result Performing Organization Address [facility] Co de Phone Number [facility] [address] [place] [address], * P2Y12 INHIBITION (07/18/2024 9:06 AM ACCOUNT REVIEW SPECIALIST) [facility] PLATELET COUNT 276 140 - 440 thou/cu mm 07/18/2024 9:53 AM ACCOUNT REVIEW SPECIALIST [facility] P2Y12 REACTION UNITS 215 07/18/2024 9:53 AM ACCOUNT REVIEW SPECIALIST [facility] Comment: Reference Range: Individuals on P2Y12 inhibition therapy: <208 PRU PRU response seen in patients not on P2Y12 inhibitor medications (mean +/- 2SD): 180-376 PRU It is important to note that the reference range among cardiac patients not exposed to P2Y12 inhibitors is quite broad (180-376 PRU). Published studies suggest that achieving a value of <208 PRU for cardiology patients receiving anti-platelet therapy is associated with a lower risk of thrombotic events. There is currently no known optimal therapeutic target PRU values. PRU targets to assess drug withdrawal in pre-surgical patients have not been established. References: 1. Pam Martin, Dee Hughes, Maria Del Rosario P, et al. Platelet Reactivity and Cardiovascular Outcomes after Percutaneous Coronary Intervention. Circulation. 2011;124:1132- 1137. 2. Irma Hughes, Pratima Miranda, Devan L, et al. Bleeding and stent thrombosis on [id number]: collaborative analysis on the role of platelet reactivity for risk stratification after percutaneous coronary intervention. Heart Journal. 2015; 36:0387-7677. 3. Irma Hughes, Mir RF, Elly gould A, et al. Expert position paper on the role of platelet function testing in patients undergoing percutaneous coronary intervention. Heart Journal. 2014;35(4):209-215. HEMATOCRIT 42.1 33.0 - 51.0 % 07/18/2024 9:53 AM ACCOUNT REVIEW SPECIALIST [facility] Blood BLOOD SPECIMEN / Unknown Venipuncture / Unknown 07/18/2024 9:06 AM ACCOUNT REVIEW SPECIALIST 07/18/2024 9:21 AM ACCOUNT REVIEW SPECIALIST us Lesli Boone NP SEND OUTS Final Result [facility] [address] [place] [address], from Last 3 Months Insurance [employer] [place] BL[place] HB ONLY MEDICARE PART B HB ONLY MEDICARE PART A HB ONLY [employer] [place] BLUE MR PB ONLY Care Teams Passenger Car Upholsterer Apprentice Relationship Specialty Start Date End Date Aiden Morton MD [address] [place] [id number] PCP - General Internal Medicine 06/13/24
--- NOTE | 2024-07-20 15:37 | ED_ITS ---
HPI - General Adult General Date Seen: 07/20/24 Chief complaint: Difficulty Swallowing Stated complaint: Unable to swallow water Time Seen by Provider: 07/20/24 15:00 Source: patient Mode of arrival: ambulatory Limitations: no limitations History of Present Illness HPI narrative: Patient is a 74-year-old woman here with her for difficulty swallowing since last night. She had a bite of chicken with dinner and since then has not been able to swallow liquids or secretions. She is spitting into a cup. She denies any pain or difficulty breathing. Denies prior esophageal food obs truction. She does have a history of GERD. She is on Brilinta, baby aspirin. Denies other anticoagulation. She is scheduled to have an aneurysm coiled tomorrow behind her right eye at [facility]. She has had vomiting related to attempts to drink water. No vomiting of blood. Related Data Home Medications ?Medication ?Instructions ?Recorded ?Confirmed ticagrelor 90 mg tablet (Brilinta) mg PO 07/20/24 Previous Rx's ?Medication ?Instructions ?Recorded aspirin 81 mg tablet,delayed 81 mg PO BID DVT Prophylaxis 35 01/24/24 release days #70 tabs metoprolol succinate 25 mg 25 mg PO BID #180 tabs 03/05/24 tablet,extended release 24 hr famotidine 20 mg tablet (Acid 20 mg PO QDAY #90 tabs 06/10/24 Small Parts Assembler (famotidine)) Allergies Allergy/AdvReac Type Severity Reaction Status Date / Time No Known Drug Allergies Allergy Verified 07/20/24 15:17 Review of Systems Status of ROS: Reports: 6 or more systems reviewed and unremarkable except as noted in History and below [facility] Medical History (Updated 07/20/24 @ 16:58 by Janelle Alejandra MD) Dyspepsia ?R10.13 - Epigastric pain (ICD-10) Hypertension ?I10 - Essential (primary) hypertension (ICD-10) Cognitive impairment ?R41.89 - Other symptoms and signs involving cognitive functions and awareness (ICD-10) Tachycardia ?R00.0 - Tachycardia, unspecified (ICD-10) History of postoperative delirium ?Z86.59 - Personal history of other mental and behavioral disorders (ICD-10) Anxiety ?F41.9 - Anxiety disorder, unspecified (ICD-10) Arthritis ?M19.90 - Unspecified osteoarthritis, unspecified site (ICD-10) Surgical History (Updated 03/11/24 @ 10:58 by Chante Barros ~ TECHNICAL AGRONOMIST, TECHNICAL AGRONOMIST) Total knee replacement status ?Z96.659 - Presence of unspecified artificial knee joint (ICD-10) History of arthroplasty of right knee (01/23/24) ?Z96.651 - Presence of right artificial knee joint (ICD-10) H/O: hysterectomy ?Z90.710 - Acquired absence of both cervix and uterus (ICD-10) FH: cholecystectomy ?Z83.79 - Family history of other diseases of the digestive system (ICD-10) Family History Father Leukemia Social History (Updated 01/23/24 @ 17:31 by Edmundo Harrington MD) Narrative: Recently moved from [facility]. She is here with her . She does not smoke. 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 she drinks alcohol about once a year. 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 Code status is full. What is your current living situation?: I presently have a place to live Problems where you live: no known problems Problems where you live details: n/a In the past 12 months, utilities in danger of being shut off: no In the past 12 mos, have been you worried that your food would run out before you had money to buy more?: never true In the past 12 mos, the food you bought just didn't last and you didn't have money to buy more?: never true Smoking Status: Never smoker How often do you have a drink containing alcohol: monthly or less How many standard drinks containing alcohol do you have on a typical day: 1 or 2 How often do you have six or more drinks on one occasion: Never AUDIT-C Alcohol total score: 1 Non-prescribed substance use: denies use Caffeine: No (decaf) How often does anyone, including family, friends and others, physically hurt you : never How often does anyone, including family, friends and others, insult or talk down to you: never How often does anyone, including family, friends and others, threaten you with harm: never How often does anyone, including family, friends and others, scream or curse at you: never service: No Exam Narrative: Exam Narrative: Vital signs reviewed In general, alert, nontoxic elderly woman. Breathing easily, voice is normal. Head: Normocephalic, atraumatic. Eyes: Sclera clear. Pupils equal and reactive. ENT: Mucous membranes moist. Throat is normal. Neck: Supple without adenopathy. No stridor. Heart: Regular rate and rhythm without murmur. Lungs: Clear. No increased work of breathing, crackles or wheezes. Abdomen: Soft, nontender to palpation. Extremities: Well perfused, pulses intact. No significant edema. Neurologic: Alert, conversant. Speech fluent, face symmetric. Moves all extremities equally. Skin: Warm, dry well perfused. Affect: Normal. Const: Vital Signs, click to edit/add: Vital Signs - 24 hr 07/20/24 15:13 Temperature 96.6 F L Pulse Rate [Pulse Oximeter] 105 H Respiratory Rate 18 Blood Pressure [Ri ght Upper Arm] 134/79 Pulse Oximetry 98 Oxygen Delivery Me thod Room Air Documenting provider has reviewed patient's vital signs: yes Course Course ED Course: We tried EZ gas here 1st, without success. We then placed an IV and gave glucagon. We also did not resolve the problem with this. We do not have endoscopy available here today but I was able to talk with the charge nurse at [facility] and she has accepted the patient to their ER so that they can involve GI for endoscopy. I have reviewed all this with the patient and her . I think it is reasonable for them to go to private car immediately to the [facility] ER and they are comfortable with that plan. Discharged in stable condition. Vital Signs Vital signs: Initial Vital Signs Temperature 96.6 F L 07/20/24 15:13 Temperature Source Temporal Artery Scan 07/20/24 15:13 Pulse Rate 105 H 07/20/24 15:13 Pulse Rhythm Regular 07/20/24 15:13 Respiratory Rate 18 07/20/24 15:13 Blood Pressure 134/79 07/20/24 15:13 Blood Pressure Mean 97 07/20/24 15:13 Blood Pressure Position Sitting 07/20/24 15:13 Pulse Oximetry 98 07/20/24 15:13 Oxygen Delivery Method Room Air 07/20/24 15:13 Vital Signs Temperature 96.6 F L 07/20/24 15:13 Pulse Rate 105 H 07/20/24 15:13 Respiratory Rate 18 07/20/24 15:13 Blood Pressure 134/79 07/20/24 15:13 Pulse Oximetry 98 07/20/24 15:13 Oxygen Delivery Method Room Air 07/20/24 15:13 Temperature 96.6 F L 07/20/24 15:13 Pulse Rate 105 H 07/20/24 15:13 Respiratory Rate 18 07/20/24 15:13 Blood Pressure 134/79 07/20/24 15:13 Pulse Oximetry 98 07/20/24 15:13 Oxygen Delivery Method Room Air 07/20/24 15:13 Medications Administered Medications: Discontinued Medications Generic Name Dose Route Start Last Admin Trade Name Freq PRN Reason Stop Dose Admin Glucagon 1 mg 07/20/24 15:38 07/20/24 16:50 Glucagon,Human Recombinant 1 Mg/Ml Vial IV 07/20/24 15:39 1 mg ONCE ONE Administration Simethicone/Sodium Bicarb/Citric Ac 1 each 07/20/24 15:25 07/20/24 15:30 Simethicone/Sod Bicarb/Cit Ac 1 Each Gran.Ef.Pk PO 07/20/24 15:26 1 each ONCE ONE Administration Discharge Plan Discharge Clinical Impression: Esophageal obstruction due to food impaction Patient Disposition: Xfer Other Discharge Location: [facility] Condition: Stable Additional Instructions: Please proceed directly to [facility] ER. They will be expecting you and will be able to provide the necessary therapy. Prescriptions: No Action metoprolol succinate 25 mg tablet extended release 24 hr 25 mg PO BID Qty: 180 3RF aspirin 81 mg Tablet,Delayed Release (Dr/Ec) 81 mg PO BID 35 Days Qty: 70 0RF Brilinta 90 mg tablet PO famotidine [Acid Small Parts Assembler (famotidine)] 20 mg tablet 20 mg PO QDAY Qty: 90 2RF Stand Alone Forms: MyHealth Info Instructions
[2024-07-20] MEDS: GLUCAGON,HUMAN RECOMBINANT 1 MG/ML VIAL IV (16:50)
[2024-07-20 17:12] VITALS: BP 146/84; PULSE 92; RESP 12; TEMP 36.6; O2SAT 99
== END 2024-07-20 17:20 | disposition other institution (70) ==
PROVIDERS: Emergency Provider Emergency Medicine; PCP Internal Medicine
DX: K22.2 Esophageal obstruction (principal); T18.128A Food in esophagus causing other injury, initial encounter
CPT/HCPCS: 96374; 99284; 99285; J1610

== ENCOUNTER 2024-12-23 10:05 | Outpatient (CLI) | payer MEDICARE, BC, SELFPAY | END 2024-12-23 10:06 | disposition home or self-care (01) | PROVIDERS: PCP Internal Medicine; Visit Provider Internal Medicine | DX: I10 Essential (primary) hypertension (principal); Z13.6 Encounter for screening for cardiovascular disorders | CPT/HCPCS: 80053; 80061 ==